=== PATIENT | female | born 1975 | race Caucasian/White ===

== ENCOUNTER 2020-01-19 12:30 | Inpatient (IN) | payer BC ==
[2020-01-24] MEDS ORDERED: Fentanyl 100 MCG/2 ML VIAL ONE ×3 (06:03→09:28)
[2020-01-24] MEDS ORDERED: Midazolam HCl 2 mg/2 ml Vial ONE ×2 (06:03→06:24)
[2020-01-24] MEDS ORDERED: Tranexamic Acid 1,000 MG/10 ML VIAL ONE (06:32)
[2020-01-24] MEDS ORDERED: Vancomycin 1.5 GRAM/300 ML BAG ONE (06:32)
[2020-01-24] MEDS ORDERED: Sodium Chloride 0.9% 100 ML ONE (06:32)
[2020-01-24] MEDS ORDERED: Ondansetron PF 4 MG/2 ML Vial IVP PRN ×2 (06:58→07:30)
[2020-01-24] MEDS ORDERED: Fentanyl 100 MCG/2 ML VIAL SLOW IVP PRN ×2 (06:58)
[2020-01-24] MEDS ORDERED: Promethazine HCl 25 MG/ML VIAL IM PRN ×2 (06:58→07:30)
[2020-01-24] MEDS ORDERED: Acetaminophen 325 MG TAB PO PRN (06:58)
[2020-01-24] MEDS ORDERED: diphenhydrAMINE 25 MG CAP PO PRN ×2 (06:58→07:30)
[2020-01-24] MEDS ORDERED: traMADol HCl 50 MG TAB PO PRN ×2 (06:58→07:30)
[2020-01-24] MEDS ORDERED: Zolpidem Tartrate 5 MG TAB PO PRN ×2 (06:58→07:30)
[2020-01-24] MEDS ORDERED: oxyCODONE/Acetaminophen 5 mg/325 mg Tablet PO PRN (07:00)
[2020-01-24] MEDS ORDERED: Loratadine 10 MG TAB PO PRN (07:00)
[2020-01-24] MEDS ORDERED: Acetaminophen 500 MG TAB PO PRN (07:21)
[2020-01-24] MEDS ORDERED: Naloxone HCl 0.4 mg/ml Vial IVP PRN (07:30)
[2020-01-24] MEDS ORDERED: diphenhydrAMINE 50 MG/ML VIAL IVP PRN (07:30)
[2020-01-24] MEDS ORDERED: Hydrocerin (Eucerin) Cream 120 gm Jar TOP PRN (07:30)
[2020-01-24] MEDS ORDERED: fentaNYL Citrate/PF 500 MCG, Bupivacaine 10 ML in Sodium Chloride 0.9% 80 ML EPIDURAL SCH (07:30)
[2020-01-24] MEDS ORDERED: Bupivacaine 0.25% 10 ML VIAL EPIDURAL PRN (07:30)
[2020-01-24] MEDS ORDERED: Ropivacaine 0.2% HCl/PF 20 ML ONE (07:30)
[2020-01-24] MEDS ORDERED: Promethazine HCl 25 MG SUPP PR PRN (07:30)
[2020-01-24] MEDS ORDERED: HYDROcodone/Acetaminophen 5/325 mg Tablet PO PRN ×2 (07:30)
[2020-01-24] MEDS ORDERED: Naloxone HCl 0.4 mg/ml Vial IV PRN (07:30)
[2020-01-24] MEDS ORDERED: diphenhydrAMINE 50 MG/ML VIAL IM PRN (07:30)
[2020-01-24] MEDS ORDERED: Ketorolac Tromethamine 30 MG/ML VIAL ONE (09:30)
[2020-01-24] MEDS ORDERED: Ondansetron PF 4 MG/2 ML Vial ONE (09:43)
[2020-01-24] MEDS ORDERED: PHENYLEPHRINE-NS 100 MCG/ML 10 ML SYRINGE ONE (09:43)
[2020-01-24] MEDS ORDERED: Rocuronium Bromide 10 MG/ML (10ML VIAL) ONE (09:43)
[2020-01-24] MEDS ORDERED: EPHEDRINE 25 MG/5 ML SYRINGE ONE (09:43)
[2020-01-24] MEDS ORDERED: Glycopyrrolate 0.2 MG/ML 5 ML SYRINGE ONE (09:43)
[2020-01-24] MEDS ORDERED: Lidocaine 1% PF 5 ML VIAL ONE (09:43)
[2020-01-24] MEDS ORDERED: PROPOFOL 200 MG/20 ML VIAL ONE (09:43)
[2020-01-24] MEDS ORDERED: Dexamethasone 20 MG/5 ML VIAL ONE (09:43)
[2020-01-24] MEDS ORDERED: Lidocaine 1.5% w/Epi 1:200K 30 ML VIAL (Epid Use) ONE (09:43)
--- NOTE | 2020-01-24 10:33 | RAD ---
XR Hip Lt 2-3 View History: Postop total left hip Comparison: Radiograph 2014 Findings: Satisfactory appearance left hip arthroplasty. Expected postoperative gas and edema. Impression: Satisfactory postoperative appearance.
--- NOTE | 2020-01-24 12:01 | OP ---
DATE OF PROCEDURE: 01/24/2020 PROCEDURE PERFORMED: Conversion of left previous hip surgery to total hip arthroplasty. MOTOR ADJUSTER: Beatrice Smallwood PA-C BLOOD LOSS: 300. SPECIMEN: None. DRAINS: None. COMPLICATION: None. IMPLANTS USED: [place] Accolade II size 3 stem, -2.5 x 36 head, a 50 mm Trident II cup with a 36 mm X3 polyethylene liner. 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 PROCEDURE IN DETAIL: After informed consent was obtained in the preoperative holding area, the patient was taken to the operative suite where general anesthesia was induced. The patient was then positioned in the lateral decubitus position. The hip was then prepped and draped in usual sterile fashion. The patient received preoperative antibiotics. Prior to incision, time-out was called and all members of the surgical team agreed upon site, surgeon, and patient. After this, a longitudinal incision was made directly over the trochanter, noted by palpation extending 2 fingerbreadths above and below the trochanter. The deeper subcutaneous layer was undermined with Bovie electrocautery. The iliotibial band was encountered and incised sharply and the plane below this was developed bluntly. A Charnley retractor was placed to hold this opened. The lateral aspect of the trochanter and the abductor muscles were encountered and then reflected anteriorly off the trochanter using Bovie electrocautery. Once this was completed, the anterior capsule was then encountered and identified and copious capsulotomy was carried out, exposing the femoral neck and head. Dislocation maneuver was then performed and an in situ provisional neck cut was then made using the oscillating saw. Attention was then turned to acetabular preparation and sequential reaming was carried out up to the appropriate diameter. A trial was then malleted into place with good firm resistance and no pullout. The permanent acetabular shell was then malleted squarely into place, as was the appropriate liner. Once completed, the wound was copiously irrigated and attention was then turned to femoral preparation. Flexion and external rotation were performed of the exposed thigh and femoral elevators were then placed at the proximal aspect of the wound. Canal finder was used to establish the length of the canal and sequential reaming was carried out, followed by broaching. Once the appropriate stability was established with the trial broaches with flexion, extension and rotational stability, we did trial with neutral and 2 mm offset incremental necks. Once the appropriate size was decided upon, with good stability noted with flexion, extension, internal and external rotation and shuck being negative, we removed the femoral trial broach and malletted into place the permanent prosthesis with good firm fit, which was also stable to rotation. Again, the hip felt very stable to flexion, extension, internal and external rotation. Leg lengths appeared near anatomic clinically and we were quite happy with prosthesis placement. Copious irrigation was then carried out through the entirety of the wound. Primary closure of the abductors was accomplished with interrupted #2 Vicryl [id number] stitches and the IT band was then closed with interrupted #2 Vicryl, oversewn with a #2 running barbed Quill stitch. Subcutaneous fascia was closed with running barbed Quill stitch and a subcuticular Monocryl barbed Quill stitch was used for skin closure and augmented with skin cement. A sterile dressing was applied. The procedure was terminated without any complication. All counts were correct. The patient was awakened in the operative suite and taken to the recovery room in stable condition. Job ID: [id number]
[2020-01-24] MEDS: Ketorolac Tromethamine 30 MG/ML VIAL IVP SCH ×2 (12:21→17:50)
[2020-01-24] MEDS: Sodium Chloride 0.9% 1,000 ML IV SCH ×2 (12:25→17:51)
[2020-01-24] MEDS: Aspirin 81 mg Enteric Coated Tablet PO SCH ×2 (12:25→21:15)
[2020-01-24 13:21] VITALS: BMI 43.4
[2020-01-24] MEDS ORDERED: Ketorolac Tromethamine 30 MG/ML VIAL IM SCH (14:00)
[2020-01-24] MEDS: CEFAZOLIN 2 GM in Premix Bag 1 BAG IVPB SCH ×2 (15:43→22:07)
[2020-01-24] MEDS ORDERED: Propranolol HCl 20 MG TAB PO SCH (21:00)
[2020-01-25] MEDS: Sodium Chloride 0.9% 1,000 ML IV SCH ×3 (00:56→23:11)
[2020-01-25] MEDS: Ketorolac Tromethamine 30 MG/ML VIAL IVP SCH ×2 (00:56→05:56)
[2020-01-25 04:56] LABS: Hemoglobin 11.2 g/dL (12.0-16.0); Mean Corpuscular HGB CONC 34.2 g/dL (32.0-36.0); Mean Corpuscular Hemoglobin 30.7 pg (27.0-31.0); Mean Corpuscular Volume 89.8 fL (78.0-98.0); Mean Platelet Volume 7.3 fL (7.4-10.4); Platelet Count 198 thou/uL (130-400); RBC Distribution Width 12.1 % (11.5-14.5); Red Blood Cell (RBC) Count 3.63 mill/uL (4.20-5.40); White Blood Cell (WBC) Count 9.7 thou/uL (4.8-10.8)
[2020-01-25] MEDS: traMADol HCl 50 MG TAB PO PRN (06:56)
[2020-01-25] MEDS: Senokot S 8.6-50 MG TAB PO SCH ×2 (08:39→20:24)
[2020-01-25] MEDS: Multivitamin W/ Minerals 1 TAB PO SCH (08:39)
[2020-01-25] MEDS: Aspirin 81 mg Enteric Coated Tablet PO SCH ×2 (08:39→20:24)
[2020-01-25] MEDS: Ferrous Gluconate 324 MG TAB PO SCH ×2 (08:39→16:32)
[2020-01-25] MEDS ORDERED: Ibuprofen 200 MG TAB PO PRN (09:53)
[2020-01-25] MEDS ORDERED: HYDROcodone/Acetaminophen 10/325 mg Tablet PO PRN ×2 (09:54)
[2020-01-25] MEDS ORDERED: HYDROcodone/Acetaminophen 5/325 mg Tablet PO PRN ×2 (12:02)
--- NOTE | 2020-01-25 12:19 | PRG ---
DATE OF SERVICE: 01/25/2020 SUBJECTIVE: Cristiane is a 45-year-old female, postoperative day #1 from left total hip arthroplasty. She is doing relatively well. She has very little complaints. She is quite comfortable. OBJECTIVE: VITAL SIGNS: Temperature 98.5, pulse 73, respiratory rate 14, and blood pressure 100/62. GENERAL: She is alert and oriented to person, place, time, and situation, responsive and appropriate with examiner. EXTREMITIES: Incision is clean and closed. No erythema. No shortening or malrotation. LABORATORY DATA: Hemoglobin and hematocrit 11.2 and 32.6. IMPRESSION: 1. Postoperative day #1, left total hip arthroplasty. 2. Asymptomatic mild hemorrhagic anemia. PLAN: Continue current care. Probable discharge home tomorrow. Job ID: [id number]
[2020-01-25] MEDS ORDERED: fentaNYL Citrate/PF 500 MCG, Bupivacaine 10 ML in Sodium Chloride 0.9% 80 ML EPIDURAL SCH (20:15)
[2020-01-26] MEDS: Sodium Chloride 0.9% 1,000 ML IV SCH (08:46)
[2020-01-26] MEDS: Multivitamin W/ Minerals 1 TAB PO SCH (08:52)
[2020-01-26] MEDS: Senokot S 8.6-50 MG TAB PO SCH (08:52)
[2020-01-26] MEDS: traMADol HCl 50 MG TAB PO PRN (08:53)
[2020-01-26] MEDS: Aspirin 81 mg Enteric Coated Tablet PO SCH (08:53)
[2020-01-26] MEDS: Ferrous Gluconate 324 MG TAB PO SCH (08:53)
[2020-01-26 11:42] VITALS: TEMP 98.9
[2020-01-26 13:23] VITALS: BP 112/60
== END 2020-01-26 14:31 | disposition home or self-care (01) | DRG 470 ==
LOC: SURG A 01-24 05:37 → SJJU 01-24 10:49
PROVIDERS: ADMIT Orthopaedic Surgery; ATTEND Orthopaedic Surgery
PROC: 0SRB0J9 Replacement of Left Hip Joint with Synthetic Substitute, Cemented, Open Approach (ICD-10-PCS; principal; 2020-01-24)
DX: M16.52 Unilateral post-traumatic osteoarthritis, left hip (principal); Z68.41 Body mass index [BMI] 40.0-44.9, adult; G43.909 Migraine, unspecified, not intractable, without status migrainosus; J30.2 Other seasonal allergic rhinitis; F32.9 Major depressive disorder, single episode, unspecified; D50.0 Iron deficiency anemia secondary to blood loss (chronic); E66.9 Obesity, unspecified; Z90.49 Acquired absence of other specified parts of digestive tract; Z79.899 Other long term (current) drug therapy
CPT/HCPCS: 36415; 85027; J0690; J1100; J1885; J2001; J2250; J2405; J2704; J2795; J3010; J3370; J3490; Q0163

== ENCOUNTER 2020-04-09 16:36 | Outpatient (CLI) | payer BC ==
[2020-04-09 17:34] LABS: #Eosinphils 0.2 10x3/uL (0.0-0.5); #Monocytes 0.5 10x3/uL (0.0-1.1); #Neutrophils 4.1 10x3/uL (1.5-8.4); %Basophils 0.6 % (0.0-2.0); %Eosinophils 2.2 % (0.0-6.0); %Lymphocytes 34.1 % (18.0-47.0); %Monocytes 6.9 % (0.0-10.0); %Neutrophils 55.9 % (40.0-75.0); Hemoglobin 13.4 g/dL (12.0-16.0); Mean Corpuscular HGB CONC 33.2 G/DL (32.0-36.0); Mean Corpuscular Hemoglobin 28.2 PG (27.0-33.0); Mean Corpuscular Volume 84.9 fl (80.0-100.0); Platelet Count 254 10x3/uL (130-400); Red Blood Cell (RBC) Count 4.76 10x6/uL (3.90-5.20); White Blood Cell (WBC) Count 7.3 10x3/uL (4.5-11.0)
[2020-04-09 17:51] LABS: ALT (SGPT) 29 U/L (8-55); AST (SGOT) 18 U/L (5-34); Alkaline Phosphatase 86 U/L (40-110); Anion Gap 16 mmol/L (10-20); BUN (Urea Nitrogen) 17 mg/dL (7.0-18.7); Bilirubin, Total 0.6 mg/dL (0.2-1.2); Calc. Creatinine Clearance 0 mL/min (70-130); Calcium 9.2 mg/dL (7.8-10.44); Carbon Dioxide 21 mmol/L (22-29); Chloride 107 mmol/L (98-107); Estimated GFR-MDRD 57; Globulin 3.3 g/dL (2.4-3.5); Glucose 91 mg/dL (70-105); Potassium 4.1 mmol/L (3.5-5.1); Protein, Total 7.3 g/dL (6.0-8.3); Sodium 140 mmol/L (136-145)
[2020-04-10 13:54] LABS: SARS-CoV-2 MS2 Positive; SARS-CoV-2 N Gene Negative; SARS-CoV-2 S Gene Negative; SARS-CoV-2 by NAA Not Detected (NotDetected); SARS-CoV-2 orf1ab Negative
== END 2020-04-09 16:37 | disposition home or self-care (01) ==
LOC: LABBT 16:36
PROVIDERS: ATTEND Specialist
DX: Z01.812 Encounter for preprocedural laboratory examination (principal); Z20.828 Contact with and (suspected) exposure to other viral communicable diseases; K80.10 Calculus of gallbladder with chronic cholecystitis without obstruction
CPT/HCPCS: 80053; 85025; 87635; U0003

== ENCOUNTER → 2020-04-13 | Day surgery (SDC) | payer BC ==
--- NOTE | 2020-04-12 11:34 | HP ---
HISTORY OF PRESENT ILLNESS: Cristiane Roy is a 45-year-old female, who has had problems with right upper quadrant epigastric pain, flank radiation for several weeks, worsening. She reports nausea and vomiting at times. They have tried medical treatment without success. She states that everybody in her family has had a cholecystectomy. The patient had a gallbladder ultrasound in June, demonstrating sludge in her gallbladder without any other abnormalities. Laboratories are pending. ALLERGIES: HIBICLENS, RASH. SHE REPORTS PROPOFOL CAUSED SOME UNDESIRABLE SIDE EFFECTS, BUT THEN AGAIN WHEN SHE HAD A RECENT HIP SURGERY IN DECEMBER, IT DID NOT BOTHER HER. PAST SURGICAL HISTORY: Left total hip replacement, appendectomy, C-sections x2. HOSPITALIZATIONS: Childbirth and hip replacement. MEDICATIONS: 1. Propranolol 60 mg a day. 2. Sertraline 100 mg a day. 3. Amitriptyline 10 mg two times a week. 4. Ursodiol b.i.d. for 9 days. 5. Relpax a day. REVIEW OF SYSTEMS: Noncontributory. FAMILY HISTORY: Noncontributory. PHYSICAL EXAMINATION: VITAL SIGNS: 249 pounds, 67 inches, 39 BMI, 138/76, 55, 97.2 degrees. HEAD, EARS EYES, NOSE, AND THROAT: Unremarkable. Sclerae nonicteric. LUNGS: Clear to auscultation. CARDIAC: Regular rate and rhythm without murmur or gallop. ABDOMEN: Soft and nontender. EXTREMITIES: Unremarkable. SKIN: Nonjaundiced. ASSESSMENT AND PLAN: Symptomatic cholelithiasis. I have recommend laparoscopic video cholecystectomy. Risks and benefits of procedure discussed. Questions answered. Job ID: [id number]
[2020-04-12 13:12] VITALS: BMI 39.5
[~2020-04-13] MED LIST: Acetaminophen 500 MG TAB ONE; Bupivacaine PF 0.5% 30 ML VIAL ONE; Dexamethasone 20 MG/5 ML VIAL ONE; Fentanyl 100 MCG/2 ML VIAL ONE; HYDROcodone/Acetaminophen 5/325 mg Tablet ONE; Ketorolac Tromethamine 30 MG/ML VIAL ONE; Levofloxacin 500 mg/D5W 100 ml Premix Bag ONE; Lidocaine 1% PF 5 ML VIAL ONE; Lidocaine 1% w/Epinephrine 1:100K 20 ML VIAL ONE; Midazolam HCl 2 mg/2 ml Vial ONE; Ondansetron PF 4 MG/2 ML Vial ONE; PROPOFOL 200 MG/20 ML VIAL ONE; Rocuronium Bromide 10 MG/ML (10ML VIAL) ONE; Scopolamine 1.5 mg/72 hour Patch ONE; ePHEDrine 50 MG/ML VIAL ONE
--- NOTE | 2020-04-13 22:15 | OP ---
DATE OF PROCEDURE: 04/13/2020 PREOPERATIVE DIAGNOSES: Chronic cholecystitis and cholelithiasis. POSTOPERATIVE DIAGNOSES: Chronic cholecystitis and cholelithiasis. PROCEDURE PERFORMED: Laparoscopic video-cholecystectomy. ANESTHESIA: General, local 0.5% Marcaine 30 mL mixed with 1% Xylocaine with epinephrine 20 mL. DESCRIPTION OF PROCEDURE: The patient was taken to the operating room where under general anesthesia, abdomen was prepared with ChloraPrep and draped in routine fashion. Local anesthetic was infiltrated in the skin and subcutaneous tissue about each port site. Infraumbilical incision made and pneumoperitoneum to 15 mmHg obtained with a Veress needle, replaced with a 5 port, video laparoscope inserted. Right subxiphoid incision was made and 11 port placed, right subcostal incision was made in midclavicular and anterior axillary line. The 5 port was placed. Gallbladder fundus grasped at the cephalad, infundibulum grasped at the lateral cystic artery and duct dissected free. Critical view obtained. Cystic artery and duct doubly clipped proximally, dividing gallbladder dissected free, obtaining good hemostasis prior to division of final peritoneal attachments. Gallbladder and stones removed. Good hemostasis ensured. Irrigant and pneumoperitoneum evacuated. All instruments removed. All skin incisions were approximated with interrupted subdermal 4-0 Monocryl and Dermal glue applied. Job ID: [id number]
== END ==
LOC: SDC 11:50
PROVIDERS: ATTEND Specialist
PROC: 0FT44ZZ Resection of Gallbladder, Percutaneous Endoscopic Approach (ICD-10-PCS; principal; 2020-04-13)
DX: K80.10 Calculus of gallbladder with chronic cholecystitis without obstruction (principal); Z79.82 Long term (current) use of aspirin; Z79.899 Other long term (current) drug therapy; Z88.8 Allergy status to other drugs, medicaments and biological substances; Z91.048 Other nonmedicinal substance allergy status
CPT/HCPCS: 88304; J1100; J1885; J1956; J2250; J2405; J2704; J3010; J3490; S0020